=== PATIENT | male | born 1985 ===

== ENCOUNTER 2020-02-09 19:57 | Emergency (ER) | payer MEDICAID ==
[2020-02-09] MEDS ORDERED: Cephalexin 500 MG Cap PO STA (20:19)
--- NOTE | 2020-02-09 20:27 | EDM.PDOC ---
ED HPI GENERAL MEDICAL PROBLEM - General Stated Complaint: INFECTION Time Seen by Provider: 02/09/20 20:15 Source of Information: Reports: Patient History Limitations: Reports: No Limitations - History of Present Illness INITIAL COMMENTS - FREE TEXT/NARRATIVE: Patient presented to the ED because of left mind finger pain,redness, and swelling. He apparently punctured it 3 days ago. He also c/o a tiny lump at the midline of his scrotum which he noticed months ago. Denies any penile discharge or pain. - Related Data Allergies Allergy/AdvReac Type Severity Reaction Status Date / Time No Known Allergies Allergy Verified 02/09/20 20:32 Home Meds: Home Meds cephALEXin [Keflex] 500 mg PO Q8H #30 cap 02/09/20 [Rx] ED ROS GENERAL - Review of Systems Review Of Systems: See Below Constitutional: Reports: No Symptoms HEENT: Reports: No Symptoms Respiratory: Reports: No Symptoms Cardiovascular: Reports: No Symptoms Endocrine: Reports: No Symptoms GI/Abdominal: Reports: No Symptoms : Reports: Other (2-3 mm solid mass mid scrotal area) Musculoskeletal: Reports: No Symptoms Skin: Reports: Erythema, Wound Neurological: Reports: No Symptoms Psychiatric: Reports: No Symptoms ED EXAM, SKIN/RASH Exam: See Below Exam Limited By: No Limitations General Appearance: Alert, No Apparent Distress Ears: Normal External Exam, Normal Canal Nose: Normal Inspection, Normal Mucosa Throat/Mouth: Normal Inspection, Normal Lips, Normal Teeth Head: Atraumatic, Normocephalic Neck: Normal Inspection, Supple, Non-Tender, Full Range of Motion Respiratory/Chest: No Respiratory Distress, Lungs Clear, Normal Breath Sounds Cardiovascular: Normal Peripheral Pulses, Regular Rate, Rhythm, No Edema, No Gallop GI/Abdominal: Normal Bowel Sounds, Soft, Non-Tender, No Organomegaly Back Exam: Normal Inspection, Full Range of Motion Extremities: Normal Inspection, Normal Range of Motion, Other (erythema left mid finger) Course - Vital Signs Text/Narrative:: Keflex 500 mg po x1 Tdap - Orders/Labs/Meds Meds: Medications Discontinued Medications Generic Name Dose Route Start Last Admin Trade Name Freq PRN Reason Stop Dose Admin Cephalexin 500 mg 02/09/20 20:19 Keflex PO 02/09/20 20:20 NOW STA Departure - Departure Time of Disposition: 20:30 Disposition: Home, Self-Care 01 Condition: Good Clinical Impression: Cellulitis, Scrotal cyst - Discharge Information Prescriptions: cephALEXin [Keflex] 500 mg PO Q8H #30 cap Instructions: Scrotal Masses, Cellulitis, Adult, [id number] Referrals: PCP,None [Primary Care Provider] - Additional Instructions: Please read discharge instructions on cellulitis and scrotal cyst Take keflex 500 mg 3 times daily for 10 days Ibuprofen 800 mg with tylenol 1000 mg every 8 hours as needed for pain/swelling Soak your finger in a cup of lookwarm water with a tsp of salt twice daily until the swelling is gone Follow up as needed
[2020-02-09] MEDS ORDERED: Diphtheria,Pertussis(Acell),Tetanus Vaccine 0.5 ML Syringe IM ONE (20:34)
== END 2020-02-09 20:48 | disposition home or self-care (01) ==
LOC: FB.ED 19:57
DX: L03.012 Cellulitis of left finger (principal); L72.9 Follicular cyst of the skin and subcutaneous tissue, unspecified; Z23 Encounter for immunization
CPT/HCPCS: 90471; 90715; 99283; A9270